=== PATIENT | male | born 1995 | race Caucasian/White ===

== ENCOUNTER 2017-12-09 02:49 | Emergency (ER) | payer OTHER ==
[~2017-12-09] VITALS: Ht 175.3 cm; Wt 85.0 kg
[2017-12-09] MEDS ORDERED: KETAMINE 100 MG/ML, 5ML IV ONE (05:42)
[2017-12-09] MEDS ORDERED: KETAMINE 100 MG/ML, 5ML ONE (05:56)
[2017-12-09] MEDS ORDERED: SODIUM CHLORIDE FLUSH 10ML SYR IVF ONE (06:00)
[2017-12-09 06:52] VITALS: BP 137/75
== END 2017-12-09 07:52 | disposition home or self-care (01) ==
LOC: EDBD 02:49 → ED 07:09
DX: S82.421A Displaced transverse fracture of shaft of right fibula, initial encounter for closed fracture (principal); W19.XXXA Unspecified fall, initial encounter; Y93.89 Activity, other specified; Y92.410 Unspecified street and highway as the place of occurrence of the external cause; Y99.8 Other external cause status
CPT/HCPCS: 27788; 99152; 99153; 99285

== ENCOUNTER 2017-12-11 06:30 | Day surgery (SDC) | payer OTHER ==
[~2017-12-11] VITALS: Ht 175.3 cm; Wt 83.5 kg
[2017-12-11] MEDS ORDERED: LACTATED RINGERS 1,000 ML IV SCH (07:01)
[2017-12-11] MEDS ORDERED: NORCO PO (07:12)
[2017-12-11 07:14] VITALS: BP 157/73
[2017-12-11] MEDS ORDERED: LIDOCAINE-MPF 1%, 2ML INFIL ONE (07:30)
[2017-12-11] MEDS ORDERED: MIDAZOLAM 1 MG/ML, 2ML ONE (07:49)
[2017-12-11] MEDS ORDERED: PROPOFOL 10 MG/ML, 20ML ONE (07:50)
[2017-12-11] MEDS ORDERED: FENTANYL PF 250 MCG/5ML ONE (07:50)
[2017-12-11] MEDS ORDERED: CEFAZOLIN 1,000 MG ONE ×2 (07:51)
[2017-12-11] MEDS ORDERED: SODIUM CHLORIDE 0.9% PF 10ML ONE (07:51)
[2017-12-11] MEDS ORDERED: ROPIvacaine/PF 0.5%, 30 ML ONE (07:55)
[2017-12-11] MEDS ORDERED: HYDROmorphone 1 MG/ML, 1ML IV PRN (09:00)
[2017-12-11] MEDS ORDERED: MEPERIDINE/PF 25MG/0.5ML IVPush PRN (09:00)
[2017-12-11] MEDS ORDERED: ONDANSETRON 2MG/ML, 2ML IVPush PRN (09:00)
[2017-12-11] MEDS ORDERED: PROMETHAZINE 12.5 MG SUPP PR PRN (09:00)
[2017-12-11] MEDS ORDERED: FENTANYL PF 100 MCG/2ML IV PRN (09:00)
[2017-12-11] MEDS ORDERED: PROMETHAZINE 25 MG/ML, 1ML IV PRN (09:00)
[2017-12-11] MEDS ORDERED: ACETAMINOPHEN 325 MG TABLET PO PRN (09:00)
[2017-12-11] MEDS ORDERED: OXYcodone 5 MG/5 ML ORAL.SOL UDC PO PRN (09:00)
[2017-12-11] MEDS ORDERED: morphine SULFATE 10 MG/ML, 1ML IV PRN (09:00)
[2017-12-11] MEDS ORDERED: OXYcodone 5 MG/5 ML ORAL.SOL UDC ONE (10:29)
[2017-12-11] MEDS ORDERED: ACETAMINOPHEN 650 MG/20.3 ML UDC ONE (10:29)
== END 2017-12-11 12:30 ==
LOC: OUT 06:30
PROVIDERS: ATTEND Orthopaedic Surgery
DX: S82.491A Other fracture of shaft of right fibula, initial encounter for closed fracture (principal); X58.XXXA Exposure to other specified factors, initial encounter; Y93.89 Activity, other specified; Y92.89 Other specified places as the place of occurrence of the external cause; Y99.8 Other external cause status
CPT/HCPCS: 27829; 73600; 76000; J0690; J2250; J2704; J2795; J3010; J7120; C1713